=== PATIENT | male | born 1955 | race Caucasian/White ===

== ENCOUNTER 2018-05-03 16:42 | Outpatient (CLI) | payer OTHER ==
--- NOTE | 2018-05-04 17:00 | Ultrasound Report ---
Reason: ABDOMINAL OR PELVIC SWELLING, MASS OR LUMP Procedure Date: 05/03/2018 Accession Number: [id number] / [id number] Procedure: US - Pelvic Limited or F/U CPT Code: FULL RESULT: EXAM: Limited PELVIC ultrasound EXAM DATE: 05/03/2018 05:05 PM. CLINICAL HISTORY: Pelvic discomfort along both inguinal tracts. COMPARISON: None. TECHNIQUE: Real-time scanning was performed of the along both inguinal tracts in the areas of clinical concern as pointed out by the patient with static images obtained. FINDINGS: Ultrasound of the area of clinical concern demonstrates no gross masses or fluid collections seen in either inguinal canal. The soft tissue has a normal appearance. IMPRESSION: No sonographic abnormality at the sites of clinical concern in both inguinal canals. RADIA
== END 2018-05-03 16:43 | disposition home or self-care (01) ==
LOC: DI 16:42
PROVIDERS: ATTEND Nurse Practitioner
DX: R19.07 Generalized intra-abdominal and pelvic swelling, mass and lump (principal)
CPT/HCPCS: 76857

== ENCOUNTER 2018-05-10 06:09 | Outpatient (CLI) | payer OTHER ==
[2018-05-10] MEDS ORDERED: IOPAMIDOL-300 100 ML VIAL ONE (06:39)
[2018-05-10] MEDS ORDERED: IOPAMIDOL-300 50 ML VIAL ONE (06:39)
[2018-05-10] MEDS ORDERED: IOPAMIDOL-300 50 ML VIAL PO ONE (07:40)
[2018-05-10] MEDS ORDERED: IOPAMIDOL-300 100 ML VIAL IVP ONE (07:40)
--- NOTE | 2018-05-10 16:17 | CT Report ---
Reason: ABDOMINAL OR PELVIC SWELLING,MASS OR LUMP,GENERA Procedure Date: 05/10/2018 Accession Number: [id number] / [id number] Procedure: CT - Abdomen/Pelvis W/ CPT Code: FULL RESULT: EXAM: CT ABDOMEN AND PELVIS EXAM DATE: 05/10/2018 07:44 AM. CLINICAL HISTORY: Abdominal or pelvic swelling, mass, or lump, general. COMPARISONS: CT CHEST W/O 05/09/2016 4:40 PM. TECHNIQUE: Routine helical CT imaging was performed through the abdomen and pelvis. IV contrast: ISOVUE 300 80mL. Enteric contrast: No. Reconstructions: Coronal and sagittal. In accordance with CT protocol optimization, one or more of the following dose reduction techniques were utilized for this exam: automated exposure control, adjustment of mA and/or KV based on patient size, or use of iterative reconstructive technique. FINDINGS: Lung Bases: Partially imaged is a 1.5 cm right pulmonary nodule which was previously seen in 2016. Currently not completely characterized. Liver: Normal. No masses. Gallbladder/Bile Ducts: Unremarkable. Spleen: Normal. Pancreas: Normal. Adrenal Glands: Normal. Kidneys: Normal. No masses or hydronephrosis. Peritoneal Cavity/Bowel: Diverticulosis without diverticulitis. No free fluid, free air or adenopathy. No masses or acute inflammatory process. The appendix is well visualized and normal. Pelvic Organs: Normal. The bladder and visualized pelvic organs are within normal limits. Vasculature: Atherosclerosis without abdominal aneurysm. Bones: No significant abnormality. Other: Incidentally noted is lipomatous hypertrophy of the left inguinal canal. IMPRESSION: No suspicious mass is identified. If the physical examination finding is in the left inguinal region, this does not represent a direct or indirect inguinal hernia. RADIA
== END 2018-05-10 06:10 | disposition home or self-care (01) ==
LOC: DI 06:09
PROVIDERS: ATTEND Family Medicine
DX: R19.07 Generalized intra-abdominal and pelvic swelling, mass and lump (principal); R79.89 Other specified abnormal findings of blood chemistry; C62.91 Malignant neoplasm of right testis, unspecified whether descended or undescended
CPT/HCPCS: 74177; Q9967

== ENCOUNTER 2018-05-19 14:52 | Outpatient (CLI) | payer OTHER ==
--- NOTE | 2018-05-20 12:11 | Ultrasound Report ---
Reason: TESTICULAR CANCER, RIGHT TESTIS Procedure Date: 05/19/2018 Accession Number: [id number] / [id number] Procedure: US - Testicle CPT Code: FULL RESULT: EXAM: SCROTAL ULTRASOUND EXAM DATE: 05/19/2018 03:15 PM. CLINICAL HISTORY: TESTICULAR CANCER, RIGHT TESTIS STATUS post orchiectomy. Current left inguinal swelling.. COMPARISON: None. TECHNIQUE: Real-time scanning was performed with static images obtained. Color-flow images were utilized. FINDINGS: Right: Testis: Surgically absent Left: Testis: 5.9 x 1.9 x 4 cm. Normal size and echotexture. No mass, calcification, or abnormal blood flow. There is tubular ectasia of the rete testis, a benign condition. Epididymis: 3.5 x 1 x 1 cm. Unremarkable. Hydrocele: None. Varicocele: None. IMPRESSION: Status post right orchiectomy. No significant abnormality left hemiscrotum. RADIA
== END 2018-05-19 14:53 | disposition home or self-care (01) ==
LOC: DI 14:52
PROVIDERS: ATTEND Family Medicine
DX: C62.91 Malignant neoplasm of right testis, unspecified whether descended or undescended (principal); Z90.79 Acquired absence of other genital organ(s)
CPT/HCPCS: 76870

== ENCOUNTER 2019-01-23 07:13 | Outpatient (CLI) | payer OTHER ==
--- NOTE | 2019-01-23 13:08 | Ultrasound Report ---
Reason: ABNORMAL LIVER FUNCTION Procedure Date: 01/23/2019 Accession Number: [id number] / [id number] Procedure: US - Abdomen Limited CPT Code: FULL RESULT: EXAM: ABDOMEN ULTRASOUND LIMITED, RUQ EXAM DATE: 01/23/2019 07:35 AM. CLINICAL HISTORY: Abnormal liver function. COMPARISON: ABDOMEN/PELVIS W/ 05/10/2018 7:41 AM. TECHNIQUE: Real-time scanning was performed with static images obtained. FINDINGS: Liver: Heterogeneous liver parenchyma. There are multiple irregularly-shaped and rounded areas of hyperechoic parenchyma scattered throughout the liver. These range in size up to 2 cm. No intrahepatic bile duct dilation noted. Right liver measures 16.2 cm. Main portal vein flow: Hepatopetal. Gallbladder: Normal. No stones, wall thickening, or sonographic Garcia's sign. Biliary System: CBD measures 3 mm. No intrahepatic or extrahepatic ductal dilatation. Other: None. IMPRESSION: 1. Background heterogeneous liver parenchyma. There are multiple irregularly-shaped and rounded hyperechoic liver lesions. Multiple underlying liver masses are suspected. Recommend contrast-enhanced MRI examination for confirmation. No intrahepatic bile duct dilation. 2. Normal gallbladder and common bile duct. RADIA
== END 2019-01-23 07:14 | disposition home or self-care (01) ==
LOC: DI 07:13
PROVIDERS: ATTEND Family Medicine
DX: R94.5 Abnormal results of liver function studies (principal); R16.0 Hepatomegaly, not elsewhere classified
CPT/HCPCS: 76705

== ENCOUNTER 2019-01-27 15:39 | Outpatient (CLI) | payer OTHER ==
[2019-01-27] MEDS ORDERED: GADOBUTROL 15 MMOL/15 ML VIAL ONE (15:59)
[2019-01-27] MEDS ORDERED: GADOBUTROL 15 MMOL/15 ML VIAL IV ONE (18:02)
--- NOTE | 2019-01-29 09:13 | MRI Report ---
Reason: ABNORMAL LIVER FUNCITON TESTS Procedure Date: 01/27/2019 Accession Number: [id number] / [id number] Procedure: MRI - Abdomen W/WO CPT Code: FULL RESULT: EXAM: MR ABDOMEN WITH AND WITHOUT CONTRAST (MR LIVER) EXAM DATE: 01/27/2019 05:00 PM. CLINICAL HISTORY: Abnormal liver function tests. COMPARISON: ABDOMEN/PELVIS W/ 05/10/2018 7:41 AM CHEST W/ 11/17/2013 1:00 PM ABDOMEN LIMITED 01/23/2019 7:35 AM. TECHNIQUE: Multiplanar breath-hold T1, T2, and DWI sequences obtained through the abdomen on an MR scanner. Images obtained before and after administration of 8 mL Gadavist intravenous contrast. Multiphase postcontrast images obtained of the liver and abdomen. FINDINGS: Lung Bases: 1.5 cm T2 hyperintense right lower lobe lung nodule on series 501 image 31 corresponding to coronal series 401 image 21, previously 1.[address] 11/17/2013. Liver: A 1.4 cm region of decreased signal intensity within posterior right liver dome segment 7/8 border on 100 second postcontrast coronal series 1301 image 50 is of uncertain etiology and significance. Question perfusion changes. No lesion evident on axial imaging. [id number] series demonstrates mild liver heterogeneity. Smooth liver contour. Patent portal and hepatic veins. Gallbladder: The gallbladder is partially distended and appears normal with no wall thickening or stone. Bile ducts: No intrahepatic or extrahepatic duct dilatation Pancreas: No pancreatic ductal dilatation or adjacent soft tissue edema. There are several scattered tiny cystic foci measuring up to 3 mm with an anterior pancreatic neck and 3 mm within posterior pancreatic head. Spleen: The spleen appears normal. Kidneys: The kidneys appear normal with no mass or hydronephrosis. Adrenals: The adrenals appear normal. Bowel: The visualized segments of the small bowel and colon appear normal with no inflammation or obstruction. Retroperitoneum: No bulky adenopathy. Mild scoliosis. Other: None IMPRESSION: 1. Although MRI is not the optimal modality for lung nodules, a 1.5 cm right lower lobe lung nodule does not appear to have significantly change since chest CT 11/17/2013. Recommend clinical correlation. 2. No suspicious liver mass by MRI. Ultrasound and MRI findings are discordant. There is subtle liver heterogeneity on [id number] series, potentially representing some degree of heterogeneous fat deposition. A region of decreased signal intensity on 100 second coronal postcontrast series could be from perfusion changes within right liver dome at junction of segments 7 and 8, as no abnormality is evident on axial imaging. Given numerous echogenic mass-like or nodular lesions on ultrasound 01/23/2019, further evaluation could be considered with ultrasound-guided tissue sampling or PET/CT. 3. Several tiny cystic foci within the pancreas. Question sidebranch IPMN. Consider 1 year follow-up MRI/MRCP. Matthew et al, "Management of Incidental Pancreatic Cysts: A White Paper of the ACR Incidental Findings Committee," JACR 2017; 14: [id number]. RADIA
== END 2019-01-27 15:40 | disposition home or self-care (01) ==
LOC: DI 15:39
PROVIDERS: ATTEND Family Medicine
DX: R94.5 Abnormal results of liver function studies (principal); R91.1 Solitary pulmonary nodule; K86.2 Cyst of pancreas
CPT/HCPCS: 74183; A9585

== ENCOUNTER 2019-06-02 08:00 | Outpatient (CLI) | payer OTHER ==
[2019-06-02 13:39] LABS: ALBUMIN 4.5 g/dL (3.2-5.5); BILIRUBIN,DIRECT 0.1 mg/dL (0.1-0.5); BILIRUBIN,TOTAL 0.7 mg/dL (0.2-1.0); TOTAL PROTEIN 7.3 g/dL (6.7-8.2)
== END 2019-06-02 23:59 | disposition home or self-care (01) ==
LOC: LAB.WCP 08:00
PROVIDERS: ATTEND Nurse Practitioner Family
DX: B19.20 Unspecified viral hepatitis C without hepatic coma (principal)
CPT/HCPCS: 36415; 80076

== ENCOUNTER 2019-07-01 08:00 | Outpatient (CLI) | payer OTHER ==
[2019-07-01 13:45] LABS: CALCIUM 9.4 mg/dL (8.5-10.3); CREATININE 0.9 mg/dL (0.6-1.2)
[2019-07-01 14:27] LABS: HB2 TOTAL 15.6 g/dL; HEMOGLOBIN A1C 0.6 g/dL; HEMOGLOBIN A1C % 5.7 % (4.6-6.2)
== END 2019-07-01 23:59 | disposition home or self-care (01) ==
LOC: LAB.WCP 08:00
PROVIDERS: ATTEND Nurse Practitioner Family
DX: F41.9 Anxiety disorder, unspecified (principal); R73.03 Prediabetes; F32.9 Major depressive disorder, single episode, unspecified
CPT/HCPCS: 36415; 80048; 83036

== ENCOUNTER 2019-07-08 10:16 | Outpatient (CLI) | payer OTHER ==
--- NOTE | 2019-07-08 12:36 | SLEEP CARE CONSULTATION ---
Information from patient questionnaire entered by Cami Waddell. I have reviewed and concur with the information entered by Cami Waddell. This document represents the service I personally performed and the decisions made by me, Karlene Anne MD, [facility]. History of Present Illness Reason for Visit: New patient Chief Complaint: reports: Insomnia, Unrefreshed sleep, Snoring, Excessive daytime sleepiness, Observed pauses in breathing, Fatigue, Frequent awakenings at night Duration of Symptoms: 6-12 months Usual bedtime: 2030 Time it takes to fall asleep: 5-10 minutes Snores at night: Yes Observed to quit breathing while asleep: Yes Sleeps alone due to snoring: No Number of times waking at night: 3-4 Reasons for waking at night: reports: Snoring, Gasping for air, Pain (*neck), Bathroom Toss, Turn, or Twitch while sleeping: Yes Recalls having dreams: Yes Usually gets out of bed at: 0500 Feels refreshed in the morning: No Morning headache: No Sleepy or fatigued during the day: Yes Ever fallen asleep while driving: No Takes day naps: Yes (on weekends) Dreams during day naps: No Prior sleep studies: Yes Year and Where: 2006 [facility] Additional HPI information: I had the pleasure of seeing Mr. Vallejo today regarding the possibility of him having a sleep disorder. As you know, he is a 63 year old gentleman who complains of loud snore, observed apneas, frequent awakenings, unrefreshed sleep, persistent fatigue, and excessive daytime sleepiness for at least a decade. He had a sleep study in [place] in 2006 that showed mild sleep apnea. He was only advised to not sleep on his back. The patient tells me that he normally goes to bed around 8:30 pm, and it takes him approximately 5 -10 minutes to fall asleep. He takes trazodone. He has been told that he snores loudly and irregularly at night. He has also been observed to stop breathing in his sleep. His occasionally has to sleep in a separate room. He can recall waking up on the average of 3 - 4 times during the night. Most of the time he wakes up because of having to use the bathroom and pain. He has awakened occasionally because of his own snoring, choking, and having to gasp for air. There is a lot of tossing and turning in his sleep. No somniloquy (sleep talking) or somnambulism (sleep walking). Generally he can recall having dreams. In the morning he usually gets up out of the bed around 5 a.m. not feeling refreshed nor rested. He usually does not have a morning headache. During the day he complains of feeling sleepy and fatigued. His score on Pledger Sleepiness Scale is 9 out of 24. He has never fallen asleep while driving nor has had any accident due to sleepiness. He usually takes naps during the day but just on weekends. Upon falling asleep during the day he denies having vivid dreams. He has never had sleep paralysis, experienced cataplexy or symptoms of restless leg syndrome. He reports having impaired concentration during the day. Subjective Initial Pledger Sleepiness Scale score: 9 Past Medical History Past Medical History: reports: Anxiety, Other (NAFLD, Hep C) Social History The patient's occupation is a [employer]. Patient is and lives in [place]. Have you smoked in the past 12 months: No Alcohol use: No Caffeine use: Yes Caffeine amount and frequency: 1 cup/day Family History Family history of sleep disordered breathing: Yes Family Hx Sleep Apnea: Father: Snoring Allergies and Home Medications Drug allergies reviewed: Yes Home medication list reviewed: Yes Allergy and home medication list: Meds: losartan, trazodone, Multivitamin once a day Allergies: no known drug allergies Review of Systems Weight loss over past 5 years: 10-15 Cardiovascular: reports: high blood pressure Respiratory: denies: shortness of breath, wheeze, sputum production, chronic cough, other Gastrointestinal: denies: heartburn, difficulty swallowing, nausea, vomitting, diarrhea, abdominal pain, other Urinary: reports: frequency Neurological: reports: headaches 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 Anne Blood Pressure: 137/78 Cuff size: regular Heart Rate: 60 O2 Saturation: 99 Height: 6 ft Weight: 170 lb Body Mass Index: 23.0 BMI Classification: Healthy weight Neck circumference: 15.5 Mood/affect: normal HEENT: No craniofacial malformation Nostrils: patent to airflow Turbinates: normal Septum: midline Mouth and throat: narrow oropharynx Soft palate: long Hard palate: normal Uvula: normal Uvula visualization: 50% Mallampati Class II Tongue: normal in size Tonsils: small Chin and jaw: normal size and position Neck: normal w/o lymphadenopathy or thyromegaly Heart: regular rate and rhythm Lungs: clear bilaterally Abdomen: soft, non-tender Extremities: no edema or clubbing Neurologic: intact, no focal deficits Impression and Plan IMPRESSION: 1. Obstructive Sleep Apnea-Hypopnea Syndrome, as suggested by history of loud and irregular snoring, observed cessation of breath while asleep, frequent awakenings during the night, unrefreshed sleep, cognitive impairment, and daytime hypersomnolence. Narrow oropharynx is a predisposing factor for obstruc tive sleep apnea-hypopnea syndrome. Untreated obstructive sleep apnea can also cause hypertension. Pathophysiology of sleep-disordered breathing was discussed. I recommend proceeding to polysomnography to confirm the diagnosis and to assess severity. If he has significant sleep disordered breathing, a manual CPAP titration study will also be performed to find the optimal treatment pressure. I informed the patient of what the sleep studies involve and after some discussion, he agreed to proceed. Plan: 1. Schedule polysomnography + manual CPAP titration study 2. Avoid long distance driving or when feeling sleepy. 3. Avoid alcohol, sedative and muscle relaxant around bedtime. 4. Return in 1 to 2 weeks after the study to discuss results and initiate therapy. I spent 100% of this 20 minute visit face to face with the patient with greater than 50% of this was spent time counseling the patient and coordination of care.
[2019-07-08 12:37] VITALS: BP 137/78
== END 2019-07-08 10:17 | disposition home or self-care (01) ==
LOC: SC 10:16
PROVIDERS: ATTEND Internal Medicine Pulmonary Disease
DX: G47.10 Hypersomnia, unspecified (principal); R06.81 Apnea, not elsewhere classified; G47.8 Other sleep disorders; R06.83 Snoring; R41.89 Other symptoms and signs involving cognitive functions and awareness
CPT/HCPCS: 99203; 99212

== ENCOUNTER 2019-07-31 20:50 | Outpatient (CLI) | payer OTHER | END 2019-07-31 20:51 | disposition home or self-care (01) | LOC: SC 20:50 | PROVIDERS: ATTEND Internal Medicine Pulmonary Disease | DX: G47.31 Primary central sleep apnea (principal); G47.61 Periodic limb movement disorder | CPT/HCPCS: 95810 ==

== ENCOUNTER 2019-09-01 15:43 | Outpatient (CLI) | payer OTHER ==
[2019-09-01 16:44] VITALS: BP 110/72
--- NOTE | 2019-09-01 16:44 | SLEEP CARE CONSULTATION ---
Information from patient questionnaire entered by Cami Waddell. I have reviewed and concur with the information entered by Cami Waddell. This document represents the service I personally performed and the decisions made by me, Maggie Roberts RN, MSN, [employer]. History of Present Illness Initial [place] Sleepiness Scale score: 9 Current [place] Sleepiness Scale score: 7 Additional HPI information: BAYLEE SAUCEDO returns for follow up and results of the recently performed polysomnography. I explained the pathophysiology behind obstructive sleep apnea and central apnea. We then discussed treatment options. For mild obstructive central sleep apnea - PAP therapy is indicated and is the most effective and reliable treatment. After some discussion, the patient opted to go with the nasal CPAP therapy. A manual titration study will be ordered to find the opt imal treatment mode and pressure. Central sleep apnea can often be treated by CPAP alone but can also require a BiPAP or ASV mode which will be determined on the manual titration study. Central apnea can also be secondary to obstructive apnea. Patient had more apnea supine than non supine indicating this possibility. Patient counseled not drink alcohol less than 4 hours before bedtime as it can increase snoring and apnea. Patient does not drink alcohol. Patient was cautioned about risks of drowsy driving until sleepiness symptoms resolve. Patient denies drowsy driving. AAS patient education on snoring and sleep apnea given and reviewed. Sleep Study - Results Polysomnography/Home Sleep Study results: The quality of the study is good. The patient had poor sleep efficiency due to sleep onset insomnia and several prolonged awakenings.. The sleep architecture was abnormal for sleep fragmentation and reduced amount of time spent in REM sleep. Respiratory monitoring showed mild central sleep apnea-hypopnea (AHI = 7.9) associated with frequent arousals, oxyhemoglobin desaturation and mild hypoxia (craig oxygen saturation of 87%). The respiratory events occurred independently of sleep stage and body position (supine AHI = 15.0; nonsupine = 7.75). Snore was light in intensity. There was moderate periodic leg movement of sleep contributing to the sleep fragmentation. Cardiac rhythm was normal sinus rhythm without significant arrhythmia. No abnormal behavior (parasomnia) observed during the night. Allergies and Home Medications Known drug allergies: No Home medication list reviewed: Yes Allergy and home medication list: Trazadone 100mg 1/tablet HS losartan 100mg 1/2 tablet daily Review of Systems Review of systems same as previous: Yes Physical Exam Blood Pressure: 110/72 Cuff size: long Heart Rate: 58 O2 Saturation: 98 Height: 6 ft 1 in Weight: 177 lb 12.8 oz Body Mass Index: 23.4 BMI Classification: Healthy weight Impression and Plan 1. Central Sleep Apnea-Hypopnea Syndrome, mild, with lowest oxygen saturation of 87%. Possibly this is the cause of the patients symptoms of unrefreshed sleep, and excessive daytime sleepiness. As noted on polysomnography, central apnea can be caused by congestive heart failure, W[employer] R[employer]ER disease, opiate drugs or idiopathic with unknown cause. Patient does not take opiates, nor is there a history noted for heart failure of WELT EDGE ROUNDER disease in records received. Central apneas can also be secondary to obstructive apnea. As mentioned above, the patient will be scheduled a manual titration study to find optimal treatment mode and setting. Because the apnea is more severe supine, there may be some obstructive component to his apnea so I instructed to avoid sleeping supine using pillow positioning until able to start CPAP use. Evidently he was diagnosed with supine only apnea in 2006 at [place] and advised positional therapy. Positive pressure therapy could benefit his hypertension. * Manual titration study * Avoid alcohol consumption near bedtime. * Avoid supine sleep until using CPAP. * The patient is again cautioned about driving until sleepiness completely resolves. * Return after sleep study to review results and initiate therapy. Time Spent with Patient (minutes): 27 I spent 100% of this visit face to face with the patient with greater than 50% of this was spent time counseling the patient and coordination of care.
== END 2019-09-01 15:44 | disposition home or self-care (01) ==
LOC: SC 15:43
PROVIDERS: ATTEND Nurse Practitioner Family
DX: G47.31 Primary central sleep apnea (principal)
CPT/HCPCS: 99212; 99214

== ENCOUNTER 2019-09-11 20:26 | Outpatient (CLI) | payer OTHER | END 2019-09-11 20:27 | disposition home or self-care (01) | LOC: SC 20:26 | PROVIDERS: ATTEND Internal Medicine Pulmonary Disease | DX: G47.33 Obstructive sleep apnea (adult) (pediatric) (principal); G47.61 Periodic limb movement disorder | CPT/HCPCS: 95811 ==

== ENCOUNTER 2019-09-23 08:15 | Outpatient (CLI) | payer OTHER ==
[2019-09-23 09:08] VITALS: BP 130/64
--- NOTE | 2019-09-23 09:08 | SLEEP CARE CONSULTATION ---
Information from patient questionnaire entered by Cami Waddell. I have reviewed and concur with the information entered by Cami Waddell. This document represents the service I personally performed and the decisions made by me, Maggie Roberts, RN, MSN, [employer] ROBOTICIST. History of Present Illness Initial [place] Sleepiness Scale score: 9 Current [place] Sleepiness Scale score: 7 Additional HPI information: BAYLEE SAUCEDO returns for follow up and results of the recently performed manual titration study. I explained the pathophysiology behind obstructive sleep apnea. We then spent quite a bit of time discussing different treatment options. For mild obstructive sleep apnea, surgery and oral appliance are alternatives to nasal CPAP therapy but in moderate or severe cases, nasal CPAP is the most effective and reliable treatment. Because of patient's hypertension, CPAP is the gold standard of treatment. After some discussion, the patient opted to go with the nasal CPAP therapy. Nasal autoCPAP set at 4-6 cmH20 will be ordered with rationale explained. If unable to tolerate CPAP, then the patient would like to try an oral appliance. I explained how CPAP machine works with sample devices [email or web address] Dreamstation and ResNPS [id number] and what to expect when using the machine. Using CPAP every night in order to get used to it was emphasized. Patient advised to put CPAP mask on before getting into bed so as not to fall asleep without CPAP. To assist acclimation to CPAP use, it could also be used for a short time during day while reading or watching TV. The patient was instructed to call the CPAP supplier to discuss any mechanical problem that may occur. If the mask given is uncomfortable or is difficult to keep on through the night even with adjustment, contact the CPAP supplier as many will replace with another mask style if notified before 30 days. If snoring or perceives is not getting enough air or too much air from the machine, notify this office. [facility] patient education PAP tips reviewed and given to patient. Patient prefers Res Med device. Patient counseled not drink alcohol less than 4 hours before bedtime as it can increase snoring and apnea. Patient does not drink alcohol. Patient was cautioned about risks of drowsy driving until sleepiness symptoms resolve. Patient denies drowsy driving. [facility] patient education on snoring and sleep apnea given and reviewed at last visit Sleep Study - Results Polysomnography/Home Sleep Study results: The quality of the study is good. CPAP was initiated at 4 cmH2O and titrated up to BiPAP at 13/9 cmH2O. Low CPAP at 6 cmH2O appeared to be optimal (AHI of 0 per hour on the pressure). There was no supine or REM sleep on the pressure. Oxygen saturation was minimally low. Higher CPAP and BiPAP settings were as sociated with frequent central apneas. The patient appeared to have did not tolerate positive airway pressure therapy well. The patients sleep efficiency was reduced due to several prolonged awakenings after the sleep onset.. The sleep architecture was abnormal for sleep fragmentation. There was moderate periodic leg movement of sleep contributing to the sleep fragmentation. Cardiac rhythm was normal sinus rhythm occasional premature atrial contractions. No abnormal behavior (parasomnia) observed during the night. Allergies and Home Medications Known drug allergies: No Home medication list reviewed: Yes (added new Hep C med / no other changes ) Review of Systems Review of systems same as previous: No (started on medication for hepatitis C ) Physical Exam Blood Pressure: 130/64 Cuff size: regular Heart Rate: 66 O2 Saturation: 98 Height: 6 ft 1 in Weight: 174 lb Weight change since last visit: lost 3 pounds Body Mass Index: 22.9 BMI Classification: Healthy weight Impression and Plan 1. Central Sleep Apnea-Hypopnea Syndrome, mild, adequately controlled with autoCPAP of 4-6cmH20. Possiby this is the cause of the patients symptoms of unrefreshed sleep, and excessive daytime sleepiness. Positive pressure therapy could benefit his hypertension. . As mentioned above, the patient will be started on nasal autoCPAP therapy with pressure set at 4-6 cmH2O. Compliance guidelines also reviewed. A copy of compliance guidelines will be given for reference at check out. Patient asked about causes of central apnea. Causes can be congestive heart failure, [employer] OPERATOR d isease and opiate drugs. Patient does not have a history of these conditions. Central apneas could also be secondary to obstructive sleep apnea which he was diagnosed with in 2007 so this could be a possibility. He is advised to discuss with his PCP. 2. Periodic limb movement, moderate that did contribute to sleep fragmentation. This was discussed at his polysomnography follow up. Due to his history of muscle skeletal pain, this could be a cause. Patient currently in physical therapy. Evidently, I did not chart this though. Periodic limb movement of sleep (PLMS) is characterized by episodes of repetitive limb movements that occur during sleep and usually involve the lower limbs. The etiology is unknown but can be associated with restless leg syndrome (RLS), neuropathy, spinal cord diseases, kidney disease, rheumatological disorders, narcolepsy, obstructive sleep apnea, and REM sleep behavior disorder. Other factors that can increase PLMS and/or RLS are heredity and iron deficiency as reflected by a low serum ferritin level below 50 to 75mcg / L. Several medications can precipitate or aggravate PLMS such as selective serotonin re- uptake inhibitor antidepressants, tricyclic antidepressants, lithium, and dopamine receptor antagonists with the exception of bupropion. Caffeine can also aggravate PLMS and should be avoided. Sleep hygiene methods can also improve sleep as well as lifestyle changes such as regular exercise. Patient was advised that further evaluation is indicated and to follow up with PCP for further evaluation. * Nasal auto CPAP therapy, pressure at 6-8 cm H2O. * Attempt to lose weight. * Avoid alcohol consumption near bedtime. * Followup with PCP for further evaluation of PLMS / cause of central apnea as noted above. * The patient is again cautioned about driving until sleepiness completely resolves. * Return one month after CPAP obtained. I will assess response to therapy and compliance at that time. Time Spent with Patient (minutes): 37 I spent 100% of this visit face to face with the patient with greater than 50% of this was spent time counseling the patient and coordination of care.
== END 2019-09-23 08:16 | disposition home or self-care (01) ==
LOC: SC 08:15
PROVIDERS: ATTEND Nurse Practitioner Family
DX: G47.31 Primary central sleep apnea (principal); G47.61 Periodic limb movement disorder
CPT/HCPCS: 99212; 99214

== ENCOUNTER 2019-12-04 17:02 | Outpatient (CLI) | payer OTHER ==
--- NOTE | 2019-12-04 17:25 | SLEEP CARE CONSULTATION ---
Information from patient questionnaire entered by Cami Waddell. I have reviewed and concur with the information entered by Cami Waddell. This document represents the service I personally performed and the decisions made by me, Maggie Roberts, RN, MSN, MANUFACTURING SALES REPRESENTATIVE. History of Present Illness Service Date and Time: 12/04/2019 1600 Previous diagnosis: Mild, Central Sleep Apnea-Hypopnea Syndrome AHI: 7.9 Reason for follow up: first compliance Equipment obtained from: Betty (Stopped CPAP and turned back in -) MILLY additional information: Since last seen, he returned CPAP as he felt he was suffocating / clautrophobic/ could not catch his breath with it. He called the office and spoke to Dr. Anne and he changed settings higher to see if this would help but it was no better. He is also worked with Betty on settings for comfort on ramp, humidity, hose and new mask but not comfortable. He returned the CPAP about 1-2 weeks ago. When he had his manual titration study he also would wake with claustrophobia and only slept well after taking off the CPAP. When he first came to this office initially, he felt he had worse insomnia and would only sleep a few hours and now sleeping 4-5 hours that he feels is due to his new regular wake and bedtime since working from home. He has also started yoga breathing at bedtime and does yoga exercise in the morning. CPAP Compliance Data - Data Reviewed with Patient Average duration of nightly device use: 43M Compliance rate %: 3 Current pressure setting (cmH2O): 4-8 Subjective Initial [place] Sleepiness Scale score: 9 Physical Exam Height: 6 ft 1 in Impression and Plan 1. Central Sleep Apnea-Hypopnea Syndrome, mild, with inability to tolerate CPAP treatment due to claustrophobia despite different pressure ranges and mask choice. Since then he has stopped CPAP and turned in the past 1-2 weeks. It was a rental from his insurance. He has improved his sleep since working from home that he feels is due to regulating his sleep schedule and incorporating yoga and regular exercise of walks. He has increased his sleep time from a few hours to about 4-5 hours. He feels he is sleeping better. He feels refreshed when awakened. But since Hepatitis treatment (with one week left) he has noted afternoon fatigue and has to take an occasional nap 2-3 times a week but does not feel any better. The naps are about 45-60 minutes. He is used to taking 15 minute ferry naps and feeling refreshed. Thus I explained how longer naps will take you into deeper sleep stage causing a feeling of grogginess. Thus he should limit naps to 15- 30 minutes. After review again of both sleep studies and notes. It was noted his overall AHI 7.9 but was to 15 in supine position with craig oxygen saturation of 87%. Thus a trial of positional therapy was advised to see if improves his sleep length as well as reduce waking to rare air hunger. Methods to achieve positional therapy were discussed with use of pillow positio sommer, Tshirt with tennis balls sewn in back or Slumberbump. Patient agreed with plan. . * Positional therapy * Reduce nap length. * Return for follow up in 2 months , or sooner if concerns arise Visit Type: Telehealth Video (to reduce risk of Covid 19 exposure) Video Type: [place] Location of Provider: Home Patient agrees and consents to this telehealth visit type: Yes Patient agrees to have their insurance billed: Yes Time Spent with Patient (minutes): 30 Provider Statement: I spent 100% of the Telehealth Video Call with the patient with greater than 50% spent counseling the patient and coordination of care.
== END 2019-12-04 17:03 | disposition home or self-care (01) ==
LOC: SC 17:02
PROVIDERS: ATTEND Nurse Practitioner Family
DX: G47.31 Primary central sleep apnea (principal)

== ENCOUNTER 2020-05-11 15:34 | Outpatient (CLI) | payer OTHER ==
[2020-05-13 13:02] LABS: HSV 1 IGG TYPE SPECIFIC AB 7.85 index; HSV 2 IGG TYPE SPECIFIC AB <0.90 index
== END 2020-05-11 15:35 | disposition home or self-care (01) ==
LOC: LAB.WCP 15:34
PROVIDERS: ATTEND Family Medicine
DX: N50.9 Disorder of male genital organs, unspecified (principal)
CPT/HCPCS: 36415; 81599; 86592; 86695; 86696